=== PATIENT | female | born 1960 | race Caucasian/White ===

== ENCOUNTER 2020-12-12 04:17 | Day surgery (SDC) | payer OTHER ==
[2020-12-05 15:31] VITALS: BMI 33.0
[2020-12-12] MEDS ORDERED: PROPOFOL 20 ML ONE (07:23)
[2020-12-12] MEDS ORDERED: MIDAZOLAM HCL 2 MG/2 ML SINGLE DOSE VIAL ONE (07:23)
[2020-12-12] MEDS ORDERED: oxyCODONE HCL 5 MG TABLET PO PRN ×2 (08:25→08:26)
[2020-12-12] MEDS ORDERED: ACETAMINOPHEN 500 MG TABLET (FP) PO PRN (08:25)
[2020-12-12] MEDS ORDERED: ONDANSETRON 4 MG/2 ML VIAL IVPUSH PRN (08:25)
[2020-12-12] MEDS ORDERED: LACTATED RINGERS SOLUTION 1,000 ML IV SCH (08:30)
[2020-12-12 11:05] VITALS: BP 100/70; TEMP 97.8
[2020-12-12 11:17] VITALS: PULSE 70
== END 2020-12-12 10:30 | disposition home or self-care (01) ==
LOC: JASU-SURG 04:17
PROVIDERS: ATTEND Urology
PROC: 0TF4XZZ Fragmentation in Left Kidney Pelvis, External Approach (ICD-10-PCS; principal; 2020-12-12 08:00)
DX: N20.0 Calculus of kidney (principal)